=== PATIENT | male | born 1970 | race Caucasian/White ===

== ENCOUNTER 2020-04-06 20:17 | Emergency (ER) | payer OTHER ==
[~2020-04-06] VITALS: Ht 190.5 cm; Wt 136.4 kg
[~2020-04-06 20:17] MED LIST: CENTRUM1 TAB PO; IBUPROFEN200 M1 PO
[2020-04-06 20:29] VITALS: BP 184/140; TEMP 97.8
[2020-04-06 20:48] LABS: BASO # 0.1 (0.0-0.2); EOS # 0.2 (0.0-0.7); EOS % 2.2 % (0-4.0); GRAN # 4.6 (1.4-6.5); GRAN % 55.8 % (42.2-75.2); HEMATOCRIT 48.8 % (42.0-52.0); HEMOGLOBIN 16.4 g/dl (13.5-18.0); LYMPH # 2.5 (1.2-3.4); LYMPH % 30.6 % (20.0-51.0); MEAN CELL VOLUME 83 fl (80.0-100.0); MEAN CORPUSCULAR HEMOGLOBIN 28 pg (27.0-31.0); MEAN CORPUSCULAR HGB CONC 34 g/dl (33.0-37.0); MONO # 0.8 (0.1-0.6); PLATELET COUNT 252 K/mm3 (130-400); RED BLOOD COUNT 5.85 M/mm3 (4.20-5.60); REDCELL DISTRIBUTION WIDTH-CV 12.9 % (11.5-14.5)
[2020-04-06 22:16] LABS: COLLECTION METHOD CLEAN CATCH
[2020-04-06 22:23] LABS: MUCOUS Present /lpf; PH 5 (5-8); SQUAMOUS EPITHELIAL None Seen /hpf; URINE APPEARANCE Clear; URINE BACTERIA Rare /hpf; URINE BILIRUBIN Negative (NEGATIVE); URINE BLOOD Negative (NEGATIVE); URINE COLOR Yellow; URINE GLUCOSE Negative (NEGATIVE); URINE KETONE Negative (NEGATIVE); URINE LEUKOCYTE ESTERASE Negative (NEGATIVE); URINE NITRATE Negative (NEGATIVE); URINE PROTEIN(semi-quant) Negative (NEGATIVE); URINE UROBILINOGEN Negative (NEGATIVE); URINE WBC 0-2 /hpf
[2020-04-06 23:58] VITALS: PULSE 64
[2020-04-07] MEDS ORDERED: NORCO 325 MG-51 TAB PO (00:12)
== END 2020-04-06 23:58 | disposition home or self-care (01) ==
LOC: COL.ER 20:17
PROVIDERS: Emergency Medicine; Physician Assistant
DX: N20.1 Calculus of ureter (principal); Z96.0 Presence of urogenital implants
CPT/HCPCS: J1170; J2405; J7030

== ENCOUNTER 2020-04-17 10:01 | Day surgery (SDC) | payer OTHER ==
[2020-04-17] VITALS (12 sets, daily range): BP systolic 84–137; BP diastolic 36–82; PULSE 48–64; TEMP 97.6–98.2
[~2020-04-17] VITALS: Ht 193 cm; Wt 137.0 kg
[~2020-04-17 10:01] MED LIST changes: +NORCO 325 MG-51 TAB PO
[2020-04-17] MEDS ORDERED: PYRIDIUM 100MG100 MG PO (11:41)
[2020-04-17] MEDS ORDERED: NORCO 325 MG-51 TAB PO (11:41)
[2020-04-17] MEDS ORDERED: FLOMAX 0.40.4 MG/CAP PO (11:43)
--- NOTE | 2020-04-17 13:00 | NUR ---
Patient returns to room 2 per cart from PACU accompanied by Erma DOMINGUEZ and is awake and alert. IV fluids infusing and site is free of redness. Temp 97.5 and room air sats 95%. Denies pain or nausea. Siderails up x2 and call light in reach. Allowed to rest.
--- NOTE | 2020-04-17 13:15 | NUR ---
Returns to room after voiding blood tinged urine and few small clots noted. IV fluids infusing. Denies pain or nausea. Tolerated apple juice and crackers. Sitting up on the cart. Siderails up x2 and call light in reach.
--- NOTE | 2020-04-17 13:20 | NUR ---
States his face fells like it is burning and is feeling dizzy. Color is pale. Head of bed layed flat and IV fluids infusing rapidly. Remains awake and talking to nurse. States that he is having some intermittent left flank pain. Cee MURRAY notified. Will continue to monitor and stay in the room.
--- NOTE | 2020-04-17 13:24 | NUR ---
IV fluids continue to infuse rapidly. Remains awake and talking.
--- NOTE | 2020-04-17 13:30 | NUR ---
IV fluids all infused and second bag hung. States that he is feeling much better. Will continue to monitor. Allowed to rest.
--- NOTE | 2020-04-17 13:35 | NUR ---
States that he is having intermittent left flank pain. Warm blankets applied to side.
--- NOTE | 2020-04-17 13:40 | NUR ---
Laying on side attempting to use urinal. States he is feeling better and having less pain.
--- NOTE | 2020-04-17 13:45 | NUR ---
Unable to urinate laying down. Head of bed gradually raised and tolerates this well.
--- NOTE | 2020-04-17 14:00 | NUR ---
Resting with eyes closed and allowed to rest. IV fluids infusing at 150cc/hr.
--- NOTE | 2020-04-17 14:30 | NUR ---
Continues to rest with eyes closed and not disturbed.
--- NOTE | 2020-04-17 14:35 | NUR ---
Sitting on the edge of the bed urinating. Urine pink tinged. No clots noted.
--- NOTE | 2020-04-17 14:45 | NUR ---
Drinking water and eating more crackers. Denies feeling faint or dizzy. Stood at bedside and tolerated activity well.
--- NOTE | 2020-04-17 15:00 | NUR ---
Jerman notified that patient will be ready for discharge at 1520. IV discontinued and patient is able to dress self.
--- NOTE | 2020-04-17 15:12 | NUR ---
Dismissal instructions given and signed. Voices understanding of these. Instructed that scripts were sent to the pharmacy.
--- NOTE | 2020-04-17 15:15 | NUR ---
Patient dismissed to home driven by mother and taken to the front door per wheelchair and assisted into car by this RN with instructions in hand.
== END 2020-04-17 16:15 | disposition home or self-care (01) ==
LOC: SDCO 10:01
DX: N13.2 Hydronephrosis with renal and ureteral calculous obstruction (principal); Z20.828 Contact with and (suspected) exposure to other viral communicable diseases
CPT/HCPCS: C1769; J1100; J1885; J1940; J2405; J2704; J3010; J3475; J7120; Q9967